=== PATIENT | female | born 1995 | race Caucasian/White ===

== ENCOUNTER 2016-07-24 05:05 | Day surgery (SDC) | payer OTHER ==
[~2016-07-24] VITALS: Ht 172.7 cm; Wt 71.7 kg
--- NOTE | ~2016-07-24 | S ---
[facility] [place]havi [place] [address] SURGICAL PATH RPT PROCEDURE Name: MOR PENA Room #: DEP [facility] M.R.#: [id number] Admission: 07/24/16 Date of : 89 Discharge: 07/24/16 Report #: [id number] Path Case #: [id number] PATHOLOGY REPORT COLLECTION DATE: 07/24/2016 RECEIVED DATE: 07/24/2016 SUBMITTING PHYS: Dr. Wilmar Mathis OTHER PHYS: Dr. Kathryn Marinelli SPECIMEN(S) RECEIVED: A.Right tonsil and adenoid B.Left tonsil * * * * * * * * * * * * FINAL DIAGNOSIS: A. Tonsil and adenoid, "right tonsil and adenoid," tonsillectomy and adenoidectomy: - Chronic adenotonsillitis with moderate hypertrophy. B. Tonsil, "left tonsil," tonsillectomy: - Chronic tonsillitis with moderate hypertrophy. (SHA:; d/t: 07/25/16) PATHOLOGIST: Zachariah Lane M.D. REPORT ELECTRONICALLY SIGNED BY: Zachariah Lane M.D. DATE/TIME: 07/25/2016 12:44 * * * * * * * * * * * * GROSS PATHOLOGY: A. Received in formalin labeled "Mor Pena, right tonsil and adenoid," is a tonsil measuring 2.8 x 1.7 x 1.6 cm in maximum dimensions and multiple pieces of adams lobulated lymphoid appearing tissue consistent with adenoids measuring 2.2 x 1.8 x 1.2 cm in aggregate dimensions. The mucosal surface of the tonsil is adams with the typical crypts identified. Sectioning reveals lobulated, homogeneous light adams cut surfaces with no grossly identifiable lesions. Shearing Shed Hand tissue is submitted in cassette A1. B. Received in formalin, labeled "Mor Pena, left tonsil," is a tonsil measuring 2.6 x 1.6 x 1.5 cm in maximum dimensions. The mucosal surface is adams with the typical crypts identified. Sectioning reveals lobulated, homogeneous light adams cut surfaces with no grossly identifiable lesions. Shearing Shed Hand tissue is submitted in cassette B1. (CAA; 07/24/2016) CLINICAL HISTORY: [address] [place] [address] SURGICAL PATH RPT PROCEDURE Name: MOR PENA Room #: DEP [facility]..#: [id number] Admission: 07/24/16 Date of : 89 Discharge: 07/24/16 Report #: [id number] Path Case #: [id number] Chronic tonsillitis and hypertrophy INITIAL CPT CODE(S): A; 84402 B; 86187 Professional services performed by [facility] at [place] [address], [place] [address] Technical services performed by [facility] at [address] [place] [address], [facility] [address], [place] [address]. [facility] [address] [address] PHONE: [phone] DIRECTOR: Ronny Morales M.D. * * * END OF REPORT * * *
--- NOTE | ~2016-07-24 | H ---
[facility] Madhavi Ramí[place] [address] HISTORY AND PHYSICAL Name: MOR PENA Room #: DEP [facility]..#: [id number] Admission: 07/24/16 Attend Phys: Wilmar Mathis MD Discharge: 07/24/16 Date of : 89 Report #: [id number] THIS REPORT FOR: //name// CC: REYMUNDO Mathis DATE OF SERVICE: 07/24/2016 The patient has nasal congestion. Has had frequent sinusitis and has been treated for allergy symptoms as well. She has been going to school in [place] and was treated for a sinus infection on at least 3 occasions since November of 2015. She recently had a course of antibiotics and steroids and continues to have sore throat and symptoms of a sinus infection. PAST MEDICAL HISTORY: Otherwise, not significant. She is on no medications on a regular basis and she has no known drug allergies. PHYSICAL EXAMINATION: She had a normal anterior nasal airway. Her tonsils are 2+ enlarged and do not appear to be infected. She has an irritated adenoid with purulence on it as seen on a nasal endoscopy. IMPRESSION: Tonsil and adenoid hypertrophy causing chronic sinusitis. PLAN: Tonsillectomy and adenoidectomy. <ELECTRONICALLY SIGNED> By: Wlimar Mathis MD 08/07/16 0818 [id number] [id number] Wilmar Mathis MD /nt
--- NOTE | ~2016-07-24 | O ---
[facility] Madhavi Ramírez [place] [address] OPERATIVE REPORT Name: MOR PENA Room #: DEP [facility]..#: [id number] Admission: 07/24/16 Attend Phys: Wilmar Mathis MD Discharge: 07/24/16 Date of : 89 Report #: [id number] THIS REPORT FOR: //name// CC: REYMUNDO Mathis DATE OF SERVICE: 07/24/2016 PREOPERATIVE DIAGNOSES: Chronic tonsillitis with tonsil and adenoid hypertrophy, chronic sinusitis. POSTOPERATIVE DIAGNOSES: Chronic tonsillitis with tonsil and adenoid hypertrophy, chronic sinusitis. OPERATIVE PROCEDURE: Tonsillectomy and adenoidectomy. ANESTHESIA: General endotracheal. DESCRIPTION OF PROCEDURE: The patient was taken to the operating room and placed in supine position. General anesthesia was induced by endotracheal intubation. Once adequate general anesthesia was obtained, the patient draped in a sterile manner. A Mckenna-Roberto mouth gag was placed in the patient's mouth, and the tongue was deviated upward. A throat pack was placed and red rubber catheters were placed through the nose and nasopharynx and out the oropharynx and oral cavity, and elevated the soft palate. The nasopharynx was visualized indirectly using a mirror. The adenoid was hypertrophied. An adenoidectomy was performed by placing the adenoid curette at the base of the vomer and sweeping downward. The adenoid was removed and sent to pathology. Nasopharyngeal packing was placed. The right tonsil was grasped and deviated towards the midline. An incision was placed in the anterior tonsillar pillar using the Bovie electrocautery, and a plane between tonsillar capsule and tonsillar fossa was established. Dissection was carried out in this plane using the Bovie, and hemostasis was achieved during the dissection. Dissection was carried out from superior to inferior. The inferior pole was incised, posterior tonsillar mucosa was incised. The tonsil was removed and sent to pathology. Left tonsil was removed in exactly the same manner. The area was then irrigated with normal saline. Hemostasis was verified in the tonsillar beds. The nasopharyngeal packing was removed. The nasopharynx was irrigated. There was some mild oozing which was controlled with suction cautery. The throat pack, mouth gag, and red rubber catheters were all removed. The patient tolerated the procedure well. Blood loss was approximately 20 mL. The patient was then awokened in the recovery room in stable condition for postoperative monitoring. <ELECTRONICALLY SIGNED> By: Wilmar Mathis MD 08/07/16 0819 [id number] [id number] Wilmar Mathis MD /nt
[~2016-07-24 05:05] MED LIST: ALDACTONE25 MG PO; PREVIFEM1 EACH PO
[2016-07-24 07:30] LABS: CALCIUM 8.7 mg/dL (8.5-10.1); CREATININE 0.8 mg/dL (0.6-1.3); POTASSIUM 3.8 mmol/L (3.5-5.1)
[2016-07-24] MEDS ORDERED: PROMS25 WY RECTAL (08:25)
[2016-07-24] MEDS ORDERED: HYCET 7.5 MG-3473 ML PO ×2 (08:25)
[2016-07-24 14:16] VITALS: BP 108/77
== END 2016-07-24 09:20 | disposition home or self-care (01) ==
LOC: TBA 05:05 → OR 05:05 → TBA 05:07 → OR 09:05
PROVIDERS: Otolaryngology
DX: J35.01 Chronic tonsillitis (principal); J35.3 Hypertrophy of tonsils with hypertrophy of adenoids; J32.8 Other chronic sinusitis
CPT/HCPCS: 50010; 50101; 56805; 62110; 62900; 64032; 70005